=== PATIENT | female | born 1935 | race Caucasian/White ===

== ENCOUNTER → 2020-07-28 | Outpatient (CLI) | payer MEDICARE ==
[~2020-07-28] MED LIST: ALENDRONATE SOD70 MG PO; ASPIRIN81 M1 PO; ATENOLOL25 MG PO; CLONIDINE HCL0.1 MG PO; MOBIC7.5 MG PO; MULTIVITAMINS1 EAC8 PO; NEXIUM40 MG PO; ZOLPIDEM TARTRAT5 MG PO
== END ==
LOC: MAMMO 12:57
PROVIDERS: ATTEND Family Medicine
DX: N63.20 Unspecified lump in the left breast, unspecified quadrant (principal)
CPT/HCPCS: 77066

== ENCOUNTER 2022-02-14 14:34 | Inpatient (IN) | payer MEDICARE ==
[~2022-02-14] VITALS: Ht 160 cm; Wt 89.8 kg
[2022-02-14] MEDS ORDERED: HYDROCODONE/APAP 5MG-325MG TAB PO ONE (15:15)
[2022-02-14 18:14] LABS: BASOPHILS % 0.2 % (0.0-1.0); HEMATOCRIT 43.4 % (34.2-44.1); HEMOGLOBIN 14.4 g/dL (12.0-16.0); LYMPHOCYTES # (AUTO) 1.1 (1.0-3.2); LYMPHOCYTES % 6.6 % (18.0-39.1); MEAN CORPUSCULAR HEMOGLOBIN 29.8 pg (28-32); MEAN CORPUSCULAR HGB CONC 33.2 g/dL (31-35); MEAN CORPUSCULAR VOLUME 89.7 fL (81-99); MONOCYTES # (AUTO) 1.2 (0.2-0.8); MONOCYTES % 7.4 % (4.4-11.3); NEUTROPHILS # (AUTO) 14.1 (2.1-6.9); NEUTROPHILS % 85.3 % (38.7-80.0); PLATELET COUNT 265 x10e3/uL (140-360); RED BLOOD COUNT 4.84 x10e6/uL (3.6-5.1); RED CELL DISTRIBUTION WIDTH 13.4 % (11.7-14.4)
[2022-02-14 18:15] LABS: CLARITY,URINE SL CLOUDY (CLEAR); COLOR,URINE STRAW (YELLOW); KETONES,URINE 1+ (NEGATIVE); LEUKOCYTE ESTERASE ,URINE NEGATIVE (NEGATIVE); NITRITE,URINE NEGATIVE (NEGATIVE); PROTEIN,URINE DIPSTICK 1+ (NEGATIVE); URINE UROBILINOGEN 0.2 mg/dL (0.2 - 1)
[2022-02-14 18:25] LABS: ALANINE AMINOTRANSFERASE 19 IU/L (0-55); ALBUMIN 4.2 g/dL (3.5-5.0); ALBUMIN/GLOBULIN RATIO 1.3 (0.8-2.0); ALKALINE PHOSPHATASE 78 IU/L (40-150); ANION GAP 15.5 mmol/L (8-16); BLOOD UREA NITROGEN 8 mg/dL (7-26); BUN/CREATININE RATIO 12 (6-25); CALCIUM 10.3 mg/dL (8.4-10.2); CARBON DIOXIDE 25 mmol/L (22-29); CHLORIDE 102 mmol/L (98-107); CREATININE, SERUM 0.65 mg/dL (0.57-1.11); GLUCOSE 121 mg/dL (74-118); POTASSIUM 3.5 mmol/L (3.5-5.1); SODIUM 139 mmol/L (136-145)
[2022-02-14 18:36] LABS: AMORPHOUS SEDIMENT,URINE MODERATE (FEW); BACTERIA,URINE MODERATE /HPF; EPITHELIAL CELLS,URINE FEW /LPF; MUCUS,URINE FEW (RARE); RBC,URINE 0-5 /HPF (0-5)
[2022-02-14 20:22] VITALS: BP 139/79
[2022-02-14 20:54] LABS: INR 0.95; PROTHROMBIN TIME 13.6 seconds (11.9-14.5)
[2022-02-14 20:55] LABS: PARTIAL THROMBOPLASTIN TIME 27.6 seconds (23.8-35.5)
[2022-02-14 21:10] VITALS: BP 139/79
[2022-02-14] MEDS: SODIUM CHLORIDE 0.9% 1000ML 1,000 ML IV SCH (21:29)
[2022-02-14] MEDS: Morphine 4mg INJECTION 4 MG/ML INJ IV PRN (21:37)
[2022-02-14] MEDS ORDERED: PRAVASTATIN SOD40 MG PO (21:42)
[2022-02-14] MEDS ORDERED: LOSARTAN POTASS50 MG PO (21:42)
[2022-02-14] MEDS ORDERED: METOPROLOL SUCC25 MG PO (21:42)
[2022-02-14] MEDS ORDERED: OMEPRAZOLE40 MG PO (21:42)
[2022-02-15] VITALS (8 sets, daily range): BP systolic 133–165; BP diastolic 81–90
[2022-02-15] MEDS: SODIUM CHLORIDE 0.9% 1000ML 1,000 ML IV SCH ×2 (03:00→13:00)
[2022-02-15 06:08] LABS: BASOPHILS # (AUTO) 0.1 (0.0-0.1); BASOPHILS % 0.4 % (0.0-1.0); EOSINOPHILS % 0.1 % (0.0-6.0); HEMATOCRIT 43.8 % (34.2-44.1); HEMOGLOBIN 13.6 g/dL (12.0-16.0); LYMPHOCYTES # (AUTO) 1.2 (1.0-3.2); LYMPHOCYTES % 8.4 % (18.0-39.1); MEAN CORPUSCULAR HEMOGLOBIN 29.5 pg (28-32); MEAN CORPUSCULAR HGB CONC 31.1 g/dL (31-35); MONOCYTES # (AUTO) 1.1 (0.2-0.8); MONOCYTES % 7.8 % (4.4-11.3); NEUTROPHILS % 82.7 % (38.7-80.0); PLATELET COUNT 237 x10e3/uL (140-360); RED BLOOD COUNT 4.61 x10e6/uL (3.6-5.1); RED CELL DISTRIBUTION WIDTH 13.9 % (11.7-14.4)
[2022-02-15 06:28] LABS: ANION GAP 16.1 mmol/L (8-16); CALCIUM 9.7 mg/dL (8.4-10.2); CREATININE, SERUM 0.63 mg/dL (0.57-1.11); POTASSIUM 4.1 mmol/L (3.5-5.1)
[2022-02-15] MEDS ORDERED: ESMOLOL HCL 100MG/10ML 10 MG/ML VIAL ONE (11:16)
[2022-02-15] MEDS ORDERED: LIDOCAINE HCL 2% LOCAL INJ 5 ML SDV VIAL INJ ONE (11:16)
[2022-02-15] MEDS ORDERED: PROPOFOL IV EMULSION 10 MG/ML 20 ML VIAL ONE (11:16)
[2022-02-15] MEDS ORDERED: ROCURONIUM BROMIDE 10 MG/ML 5ML VIAL IV ONE (11:16)
[2022-02-15] MEDS ORDERED: DEXAMETHASONE SOD PHOS INJ 4 MG/ML SDV ONE (11:16)
[2022-02-15] MEDS ORDERED: SUGAMMADEX SODIUM 200 MG/2 ML VIAL IV ONE ×2 (11:16→16:03)
[2022-02-15] MEDS ORDERED: SEVOFLURANE INHAL SOLN 250 ML PEN BTL ONE (11:16)
[2022-02-15] MEDS ORDERED: POVIDONE IODINE 0.05% 0.05 % ML PO ONE (11:16)
[2022-02-15] MEDS ORDERED: SODIUM CHLORIDE 0.9% 500ML 0 ML ONE (13:17)
[2022-02-15] MEDS ORDERED: SODIUM CHLORIDE 0.9% 250ML 250 ML ONE ×2 (13:17→13:56)
[2022-02-15] MEDS ORDERED: TRANEXAMIC ACID 20 ML ONE (13:17)
[2022-02-15] MEDS ORDERED: Vancomycin IV 1,000 MG ONE (13:17)
[2022-02-15] MEDS ORDERED: MIDAZOLAM HCL 2 MG/2 ML VIAL ONE (13:51)
[2022-02-15] MEDS ORDERED: Vancomycin IV 1 GM VIAL ONE (13:54)
[2022-02-15] MEDS ORDERED: ROPIVACAINE 246.25 MG, EPINEPHRINE HCL 1:1000 1ML 0.5 MG, CLONIDINE HCL 0.08 MG, KETORO... INJ ONE ×5 (14:30)
[2022-02-16] VITALS (9 sets, daily range): BP systolic 120–157; BP diastolic 59–86
[2022-02-16] MEDS: Vancomycin IV 1 GM in SODIUM CHLORIDE 0.9% 250ML 250 ML IV SCH ×2 (01:08→13:13)
[2022-02-16] MEDS: SODIUM CHLORIDE 0.9% 1000ML 1,000 ML IV SCH ×3 (01:08→17:15)
[2022-02-16 05:45] LABS: ANION GAP 11.6 mmol/L (8-16); CALCIUM 8.5 mg/dL (8.4-10.2); CREATININE, SERUM 0.58 mg/dL (0.57-1.11); POTASSIUM 3.6 mmol/L (3.5-5.1)
[2022-02-16 06:00] LABS: BASOPHILS % 0.1 % (0.0-1.0); HEMATOCRIT 35.1 % (34.2-44.1); HEMOGLOBIN 11.1 g/dL (12.0-16.0); LYMPHOCYTES # (AUTO) 0.9 (1.0-3.2); LYMPHOCYTES % 6.7 % (18.0-39.1); MEAN CORPUSCULAR HEMOGLOBIN 29.9 pg (28-32); MEAN CORPUSCULAR HGB CONC 31.6 g/dL (31-35); MEAN CORPUSCULAR VOLUME 94.6 fL (81-99); MONOCYTES # (AUTO) 1.4 (0.2-0.8); MONOCYTES % 9.8 % (4.4-11.3); NEUTROPHILS # (AUTO) 11.5 (2.1-6.9); NEUTROPHILS % 82.5 % (38.7-80.0); PLATELET COUNT 227 x10e3/uL (140-360); RED BLOOD COUNT 3.71 x10e6/uL (3.6-5.1); RED CELL DISTRIBUTION WIDTH 13.5 % (11.7-14.4)
[2022-02-17] VITALS (8 sets, daily range): BP systolic 106–141; BP diastolic 61–84
[2022-02-17 04:52] LABS: BASOPHILS % 0.2 % (0.0-1.0); EOSINOPHILS % 0.1 % (0.0-6.0); HEMATOCRIT 33.1 % (34.2-44.1); HEMOGLOBIN 10.6 g/dL (12.0-16.0); LYMPHOCYTES # (AUTO) 1.6 (1.0-3.2); LYMPHOCYTES % 13.7 % (18.0-39.1); MEAN CORPUSCULAR HEMOGLOBIN 29.9 pg (28-32); MEAN CORPUSCULAR VOLUME 93.5 fL (81-99); MONOCYTES # (AUTO) 1.4 (0.2-0.8); MONOCYTES % 11.5 % (4.4-11.3); NEUTROPHILS # (AUTO) 8.7 (2.1-6.9); NEUTROPHILS % 73.9 % (38.7-80.0); PLATELET COUNT 232 x10e3/uL (140-360); RED BLOOD COUNT 3.54 x10e6/uL (3.6-5.1); RED CELL DISTRIBUTION WIDTH 13.3 % (11.7-14.4)
[2022-02-17] MEDS: Vancomycin IV 1 GM in SODIUM CHLORIDE 0.9% 250ML 250 ML IV SCH ×2 (04:56→15:22)
[2022-02-17] MEDS: SODIUM CHLORIDE 0.9% 1000ML 1,000 ML IV SCH ×2 (05:00→19:51)
[2022-02-17] MEDS ORDERED: Vancomycin IV 1 GM in SODIUM CHLORIDE 0.9% 250ML 250 ML IV SCH (05:00)
[2022-02-17 05:26] LABS: ANION GAP 13.6 mmol/L (8-16); CALCIUM 8.7 mg/dL (8.4-10.2); CREATININE, SERUM 0.58 mg/dL (0.57-1.11); POTASSIUM 3.6 mmol/L (3.5-5.1)
[2022-02-17] MEDS: ENOXAPARIN SOD INJ 40 MG/0.4 ML SYR SC SCH (08:36)
[2022-02-17] MEDS ORDERED: METOPROLOL SUCCINATE 25 MG TAB XL PO SCH (09:00)
[2022-02-17] MEDS: Morphine 4mg INJECTION 4 MG/ML INJ IV PRN (10:10)
[2022-02-18] VITALS (9 sets, daily range): BP systolic 138–162; BP diastolic 72–87
[2022-02-18] MEDS: SODIUM CHLORIDE 0.9% 1000ML 1,000 ML IV SCH ×3 (01:00→20:52)
[2022-02-18 06:28] LABS: BASOPHILS # (AUTO) 0.1 (0.0-0.1); BASOPHILS % 0.5 % (0.0-1.0); EOSINOPHILS # (AUTO) 0.1 (0.0-0.4); EOSINOPHILS % 0.7 % (0.0-6.0); HEMATOCRIT 29.9 % (34.2-44.1); HEMOGLOBIN 9.9 g/dL (12.0-16.0); LYMPHOCYTES # (AUTO) 1.8 (1.0-3.2); LYMPHOCYTES % 18.7 % (18.0-39.1); MEAN CORPUSCULAR HEMOGLOBIN 29.6 pg (28-32); MEAN CORPUSCULAR HGB CONC 33.1 g/dL (31-35); MEAN CORPUSCULAR VOLUME 89.5 fL (81-99); MONOCYTES # (AUTO) 1.1 (0.2-0.8); NEUTROPHILS # (AUTO) 6.3 (2.1-6.9); NEUTROPHILS % 67.4 % (38.7-80.0); PLATELET COUNT 249 x10e3/uL (140-360); RED BLOOD COUNT 3.34 x10e6/uL (3.6-5.1); RED CELL DISTRIBUTION WIDTH 13.5 % (11.7-14.4)
[2022-02-18 06:47] LABS: ANION GAP 9.9 mmol/L (8-16); CALCIUM 8.5 mg/dL (8.4-10.2); CREATININE, SERUM 0.55 mg/dL (0.57-1.11)
[2022-02-18 06:49] LABS: POTASSIUM 2.9 mmol/L (3.5-5.1)
[2022-02-18] MEDS ORDERED: POTASSIUM CHLORIDE 20 MEQ TAB CR PO STA (06:54)
[2022-02-18] MEDS ORDERED: POTASSIUM CHLORIDE 20MEQ/100ML 100 ML IV ONE (07:00)
[2022-02-18] MEDS: Vancomycin IV 1 GM in SODIUM CHLORIDE 0.9% 250ML 250 ML IV SCH ×2 (07:06→16:00)
[2022-02-18] MEDS: ENOXAPARIN SOD INJ 40 MG/0.4 ML SYR SC SCH (09:01)
[2022-02-18] MEDS: METOPROLOL SUCCINATE 50 MG TAB XL PO SCH (09:01)
[2022-02-18] MEDS: ACETAMINOPHEN 325 MG TAB PO PRN (09:02)
[2022-02-18] MEDS: MELATONIN 3 MG TAB PO SCH (21:51)
[2022-02-19] VITALS (8 sets, daily range): BP systolic 118–144; BP diastolic 67–80
[2022-02-19] MEDS: Vancomycin IV 1 GM in SODIUM CHLORIDE 0.9% 250ML 250 ML IV SCH ×2 (04:23→17:01)
[2022-02-19 05:20] LABS: ANION GAP 10.3 mmol/L (8-16); BLOOD UREA NITROGEN < 5 mg/dL (7-26); CALCIUM 8.8 mg/dL (8.4-10.2); CARBON DIOXIDE 25 mmol/L (22-29); CHLORIDE 108 mmol/L (98-107); CREATININE, SERUM 0.44 mg/dL (0.57-1.11); GLUCOSE 107 mg/dL (74-118); POTASSIUM 3.3 mmol/L (3.5-5.1); SODIUM 140 mmol/L (136-145)
[2022-02-19 05:37] LABS: BUN/CREATININE RATIO 11 (6-25)
[2022-02-19] MEDS: ENOXAPARIN SOD INJ 40 MG/0.4 ML SYR SC SCH (08:46)
[2022-02-19] MEDS: METOPROLOL SUCCINATE 50 MG TAB XL PO SCH (08:46)
[2022-02-19] MEDS: SODIUM CHLORIDE 0.9% 1000ML 1,000 ML IV SCH ×3 (08:46→21:04)
[2022-02-19] MEDS: Morphine 4mg INJECTION 4 MG/ML INJ IV PRN ×5 (08:46→21:10)
[2022-02-19] MEDS: ACETAMINOPHEN 325 MG TAB PO PRN (08:51)
[2022-02-19] MEDS ORDERED: POTASSIUM CHLORIDE 20 MEQ TAB CR PO ONE (18:50)
[2022-02-19] MEDS: MELATONIN 3 MG TAB PO SCH (21:00)
[2022-02-20 00:19] VITALS: BP 131/73
[2022-02-20] MEDS: Vancomycin IV 1 GM in SODIUM CHLORIDE 0.9% 250ML 250 ML IV SCH (05:23)
[2022-02-20 05:28] VITALS: BP 150/74
[2022-02-20 06:14] LABS: ANION GAP 10.4 mmol/L (8-16); BLOOD UREA NITROGEN < 5 mg/dL (7-26); CALCIUM 8.5 mg/dL (8.4-10.2); CARBON DIOXIDE 27 mmol/L (22-29); CHLORIDE 107 mmol/L (98-107); CREATININE, SERUM 0.52 mg/dL (0.57-1.11); GLUCOSE 102 mg/dL (74-118); POTASSIUM 3.4 mmol/L (3.5-5.1); SODIUM 141 mmol/L (136-145)
[2022-02-20 06:17] LABS: BUN/CREATININE RATIO 10 (6-25)
[2022-02-20] MEDS ORDERED: POTASSIUM CITRATE ER 10 MEQ TAB PO ONE (07:45)
[2022-02-20 08:23] VITALS: BP 127/70
[2022-02-20] MEDS: METOPROLOL SUCCINATE 50 MG TAB XL PO SCH (09:39)
[2022-02-20] MEDS: ENOXAPARIN SOD INJ 40 MG/0.4 ML SYR SC SCH (09:39)
== END 2022-02-20 12:02 | DRG 522 ==
LOC: ER 14:45 → ERHOLD 16:55 → MED/SURG2 19:53 → OBSVTOIN 02-16 08:56
PROVIDERS: ADMIT Family Medicine; ATTEND Family Medicine
PROC: 0SRR039 Replacement of Right Hip Joint, Femoral Surface with Ceramic Synthetic Substitute, Cemented, Open Approach (ICD-10-PCS; principal; 2022-02-15 15:17)
DX: S72.011A Unspecified intracapsular fracture of right femur, initial encounter for closed fracture (principal); S32.020A Wedge compression fracture of second lumbar vertebra, initial encounter for closed fracture; W18.30XA Fall on same level, unspecified, initial encounter; Y92.129 Unspecified place in nursing home as the place of occurrence of the external cause; E78.5 Hyperlipidemia, unspecified; I10 Essential (primary) hypertension; Z68.35 Body mass index [BMI] 35.0-35.9, adult; E66.09 Other obesity due to excess calories; R00.0 Tachycardia, unspecified; Z20.822 Contact with and (suspected) exposure to COVID-19; E78.00 Pure hypercholesterolemia, unspecified; Z88.0 Allergy status to penicillin; K80.80 Other cholelithiasis without obstruction; Z96.652 Presence of left artificial knee joint
CPT/HCPCS: 0223U; 36415; 51700; 70450; 71045; 72125; 72170; 74176; 80048; 80053; 80202; 81001; 85025; 85610; 85730; 86850; 86900; 93005; 93306; 94799; 96361; 99251; 99285; C1713; C1776; G0378; J0171; J1100; J1650; J1885; J2001; J2250; J2270; J2795; J3370; J3480; J7030; J7040; J7050

== ENCOUNTER 2022-03-24 09:26 | Inpatient (IN) | payer MEDICARE ==
[~2022-03-24] VITALS: Ht 162.6 cm; Wt 89.8 kg
[~2022-03-24 09:26] MED LIST changes: +LOSARTAN POTASS50 MG PO; +METOPROLOL SUCC25 MG PO; +OMEPRAZOLE40 MG PO; +PRAVASTATIN SOD40 MG PO
[2022-03-24] MEDS ORDERED: ONDANSETRON HCL INJ 2MG/ML 2ML 2 MG/ML VIAL IV STA (10:16)
[2022-03-24] MEDS ORDERED: Morphine 2mg Syringe 2 MG/ML SYR IV STA (10:16)
[2022-03-24 11:14] LABS: BASOPHILS # (AUTO) 0.1 (0.0-0.1); BASOPHILS % 0.5 % (0.0-1.0); EOSINOPHILS # (AUTO) 0.1 (0.0-0.4); EOSINOPHILS % 0.8 % (0.0-6.0); HEMATOCRIT 35.4 % (34.2-44.1); HEMOGLOBIN 11.4 g/dL (12.0-16.0); LYMPHOCYTES # (AUTO) 1.7 (1.0-3.2); LYMPHOCYTES % 16.7 % (18.0-39.1); MEAN CORPUSCULAR HEMOGLOBIN 28.6 pg (28-32); MEAN CORPUSCULAR HGB CONC 32.2 g/dL (31-35); MEAN CORPUSCULAR VOLUME 88.9 fL (81-99); MONOCYTES # (AUTO) 0.8 (0.2-0.8); MONOCYTES % 7.5 % (4.4-11.3); NEUTROPHILS # (AUTO) 7.6 (2.1-6.9); NEUTROPHILS % 74.1 % (38.7-80.0); PLATELET COUNT 349 x10e3/uL (140-360); RED BLOOD COUNT 3.98 x10e6/uL (3.6-5.1); RED CELL DISTRIBUTION WIDTH 13.4 % (11.7-14.4)
[2022-03-24 11:21] LABS: CLARITY,URINE CLEAR (CLEAR); COLOR,URINE YELLOW (YELLOW); LEUKOCYTE ESTERASE ,URINE NEGATIVE (NEGATIVE); NITRITE,URINE NEGATIVE (NEGATIVE); PROTEIN,URINE DIPSTICK NEGATIVE (NEGATIVE)
[2022-03-24 11:22] LABS: KETONES,URINE NEGATIVE (NEGATIVE); URINE UROBILINOGEN 0.2 mg/dL (0.2 - 1)
[2022-03-24 11:24] LABS: INR 0.94; PROTHROMBIN TIME 13.4 seconds (11.9-14.5)
[2022-03-24 11:25] LABS: PARTIAL THROMBOPLASTIN TIME 29.4 seconds (23.8-35.5)
[2022-03-24 11:32] LABS: ALANINE AMINOTRANSFERASE 8 IU/L (0-55); ALBUMIN 3.4 g/dL (3.5-5.0); ALBUMIN/GLOBULIN RATIO 1.2 (0.8-2.0); ALKALINE PHOSPHATASE 97 IU/L (40-150); BLOOD UREA NITROGEN 9 mg/dL (7-26); BUN/CREATININE RATIO 10 (6-25); CALCIUM 9.2 mg/dL (8.4-10.2); CARBON DIOXIDE 22 mmol/L (22-29); CHLORIDE 105 mmol/L (98-107); CREATINE KINASE 221 IU/L (29-168); CREATININE, SERUM 0.91 mg/dL (0.57-1.11); GLUCOSE 109 mg/dL (74-118); MAGNESIUM 1.8 MG/DL (1.3-2.1); SODIUM 140 mmol/L (136-145)
[2022-03-24 11:42] LABS: BACTERIA,URINE FEW /HPF; EPITHELIAL CELLS,URINE FEW /LPF; WBC,URINE (MAN) 0-5 /HPF (0-5)
[2022-03-24] MEDS ORDERED: ETOMIDATE 2 MG/ML 10 ML INJ IV STA (13:02)
[2022-03-24] MEDS ORDERED: FENTANYL CITRATE/PF 100MCG/2 ML INJ IV ONE (13:15)
[2022-03-24] MEDS ORDERED: ETOMIDATE 40 MG/ 20ML VIAL IV STA (13:38)
[2022-03-24] MEDS ORDERED: POTASSIUM CHLORIDE 20 MEQ TAB CR PO STA (13:47)
[2022-03-24] MEDS ORDERED: Morphine 2mg Syringe 2 MG/ML SYR IV PRN (16:15)
[2022-03-24] MEDS ORDERED: ONDANSETRON HCL INJ 2MG/ML 2ML 2 MG/ML VIAL IV PRN (16:15)
[2022-03-24 20:30] VITALS: BP 124/61
[2022-03-24] MEDS: ACETAMINOPHEN 325 MG TAB PO PRN (20:49)
[2022-03-24] MEDS: MELATONIN 5 MG TABLET PO SCH (20:49)
[2022-03-24 21:00] VITALS: BP 124/61
[2022-03-25] VITALS (8 sets, daily range): BP systolic 121–150; BP diastolic 58–74
[2022-03-25] MEDS: ACETAMINOPHEN 325 MG TAB PO PRN ×2 (04:56→20:37)
[2022-03-25 07:16] LABS: BASOPHILS # (AUTO) 0.1 (0.0-0.1); BASOPHILS % 0.8 % (0.0-1.0); EOSINOPHILS # (AUTO) 0.2 (0.0-0.4); EOSINOPHILS % 2.9 % (0.0-6.0); HEMATOCRIT 32.1 % (34.2-44.1); HEMOGLOBIN 10.5 g/dL (12.0-16.0); LYMPHOCYTES # (AUTO) 1.7 (1.0-3.2); LYMPHOCYTES % 24.1 % (18.0-39.1); MEAN CORPUSCULAR HEMOGLOBIN 28.9 pg (28-32); MEAN CORPUSCULAR HGB CONC 32.7 g/dL (31-35); MEAN CORPUSCULAR VOLUME 88.4 fL (81-99); MONOCYTES # (AUTO) 0.8 (0.2-0.8); MONOCYTES % 10.6 % (4.4-11.3); NEUTROPHILS # (AUTO) 4.4 (2.1-6.9); NEUTROPHILS % 61.3 % (38.7-80.0); PLATELET COUNT 304 x10e3/uL (140-360); RED BLOOD COUNT 3.63 x10e6/uL (3.6-5.1)
[2022-03-25 07:58] LABS: ALBUMIN 2.9 g/dL (3.5-5.0); ANION GAP 12.3 mmol/L (8-16); CALCIUM 8.9 mg/dL (8.4-10.2); CREATININE, SERUM 0.91 mg/dL (0.57-1.11); POTASSIUM 3.3 mmol/L (3.5-5.1)
[2022-03-25] MEDS: PANTOPRAZOLE SOD 40 MG TABEC PO SCH (08:59)
[2022-03-25] MEDS: METOPROLOL SUCCINATE 25 MG TAB XL PO SCH (09:00)
[2022-03-25] MEDS: PRAVASTATIN 20 MG TAB PO SCH (09:00)
[2022-03-25] MEDS: LOSARTAN POTASSIUM 25 MG TAB PO SCH (09:00)
[2022-03-25] MEDS: CLONIDINE HCL 0.1 MG TAB PO SCH (09:00)
[2022-03-25] MEDS ORDERED: POTASSIUM CHLORIDE 20 MEQ TAB CR PO ONE (09:00)
[2022-03-25] MEDS: MELATONIN 5 MG TABLET PO SCH (20:37)
[2022-03-26] VITALS (8 sets, daily range): BP systolic 98–139; BP diastolic 61–86
[2022-03-26 06:03] LABS: CALCIUM 9.1 mg/dL (8.4-10.2); CREATININE, SERUM 0.85 mg/dL (0.57-1.11)
[2022-03-26] MEDS: PRAVASTATIN 20 MG TAB PO SCH (08:54)
[2022-03-26] MEDS: CLONIDINE HCL 0.1 MG TAB PO SCH (08:55)
[2022-03-26] MEDS: LOSARTAN POTASSIUM 25 MG TAB PO SCH (08:55)
[2022-03-26] MEDS: PANTOPRAZOLE SOD 40 MG TABEC PO SCH (08:55)
[2022-03-26] MEDS: METOPROLOL SUCCINATE 25 MG TAB XL PO SCH (08:56)
[2022-03-26] MEDS: MELATONIN 5 MG TABLET PO SCH (20:43)
[2022-03-26] MEDS: ACETAMINOPHEN 325 MG TAB PO PRN (20:43)
[2022-03-27] VITALS (10 sets, daily range): BP systolic 103–131; BP diastolic 61–71
[2022-03-27] MEDS: PRAVASTATIN 20 MG TAB PO SCH (08:26)
[2022-03-27] MEDS: PANTOPRAZOLE SOD 40 MG TABEC PO SCH (08:27)
[2022-03-27] MEDS: METOPROLOL SUCCINATE 25 MG TAB XL PO SCH (08:27)
[2022-03-27] MEDS: LOSARTAN POTASSIUM 25 MG TAB PO SCH (08:28)
[2022-03-27] MEDS: CLONIDINE HCL 0.1 MG TAB PO SCH (08:28)
[2022-03-27] MEDS ORDERED: ONDANSETRON HCL 4 MG ORAL DISINTEGRATING TAB PO PRN (14:00)
[2022-03-27] MEDS: MELATONIN 5 MG TABLET PO SCH (20:51)
[2022-03-27] MEDS: ACETAMINOPHEN 325 MG TAB PO PRN (20:53)
[2022-03-28 00:09] VITALS: BP 112/57
[2022-03-28] MEDS: ACETAMINOPHEN 325 MG TAB PO PRN ×2 (04:25→13:26)
[2022-03-28 07:59] VITALS: BP 107/54
[2022-03-28] MEDS: PANTOPRAZOLE SOD 40 MG TABEC PO SCH (10:17)
[2022-03-28] MEDS: METOPROLOL SUCCINATE 25 MG TAB XL PO SCH (10:17)
[2022-03-28] MEDS: PRAVASTATIN 20 MG TAB PO SCH (10:17)
[2022-03-28] MEDS: LOSARTAN POTASSIUM 25 MG TAB PO SCH (10:18)
[2022-03-28 12:17] VITALS: BP 127/89
[2022-03-28 16:01] VITALS: BP 129/64
== END 2022-03-28 17:40 | disposition home or self-care (01) | DRG 560 ==
LOC: ER 09:30 → ERHOLD 16:13 → MED/SURG3 20:31
PROVIDERS: ADMIT Family Medicine; ATTEND Family Medicine
PROC: 0SS9XZZ Reposition Right Hip Joint, External Approach (ICD-10-PCS; principal; 2022-03-24)
DX: T84.020A Dislocation of internal right hip prosthesis, initial encounter (principal); E44.1 Mild protein-calorie malnutrition; S73.004A Unspecified dislocation of right hip, initial encounter; Z96.641 Presence of right artificial hip joint; I10 Essential (primary) hypertension; K21.9 Gastro-esophageal reflux disease without esophagitis; E87.6 Hypokalemia; E78.5 Hyperlipidemia, unspecified; Z88.0 Allergy status to penicillin; Z20.822 Contact with and (suspected) exposure to COVID-19; Z68.34 Body mass index [BMI] 34.0-34.9, adult
CPT/HCPCS: 0223U; 36415; 51700; 71045; 80048; 80053; 81001; 82550; 82553; 83735; 84484; 85025; 85610; 85730; 87086; 93005; 94799; 99284; J2270; J2405; J3010